=== PATIENT | male | born 2000 | race Caucasian/White ===

== ENCOUNTER 2022-04-25 17:46 | Emergency (ER) | payer OTHER ==
[2022-04-25 17:51] VITALS: BP 119/80; PULSE 84; RESP 18; TEMP 98; BMI 35.9
[2022-04-25] MEDS ORDERED: CEPHALEXIN MONOHYDRATE 500 MG CAPSULE (UD) PO ONE (20:22)
[2022-04-25] MEDS ORDERED: CEPHALEXIN MONOHYDRATE 500 MG CAPSULE (UD) ONE (20:23)
== END 2022-04-25 20:36 | disposition home or self-care (01) ==
LOC: JERFT 17:46 → JER 17:46 → JERFT 20:36
DX: S61.441A Puncture wound with foreign body of right hand, initial encounter (principal); W45.8XXA Other foreign body or object entering through skin, initial encounter
CPT/HCPCS: 73130-TC-RT-FY; 99283-25